=== PATIENT | female | born 1955 | race Caucasian/White ===

== ENCOUNTER 2022-12-04 11:40 | Emergency (ER) | payer MEDICARE, SELFPAY ==
[2022-12-04 11:47] VITALS: BP 130/65; PULSE 74; RESP 16; TEMP 36.8; O2SAT 97
--- NOTE | 2022-12-04 11:55 | W.ED.GENAD ---
Discharge Plan Disposition Patient Disposition: Home Condition: Improving Discharge Details Clinical Impression: Contusion of knee, Contusion of face, Abrasion of knee, right Primary Care Provider: Dwayne Carbone ED Provider: Elliot Stone Meds and New Rx's Prescriptions: Continued metformin 1,000 mg tablet 1,000 mg PO BID amlodipine 10 mg tablet 10 mg PO DAILY hydrochlorothiazide 50 mg tablet 50 mg PO DAILY levothyroxine [Levo-T] 100 mcg tablet 100 mcg PO DAILY simvastatin 40 mg tablet 40 mg PO QHS Discharge Instructions Instructions: Contusion in Adults (ED), Swollen Knee Joint (ED) Discharge Data Discharge Physician: Elliot Stone Medical Decision Making MDM: Summary: Patient fell sustaining trauma to her left infraorbital area left patella right hand and left lower leg. X-rays were done of the hand and the knee and a CT scan of the head and facial bones were done which were negative. Patient denies any pain denies any diplopia and will be sent home. Patient received a tetanus shot in the emergency department for she does not recall the last time she had 1 done and the wounds were cleaned and dressed. Data Review Analysis All the data on this patient was reviewed by me including laboratory and imaging studies as well as bedside studies performed by me Independent review of Studies Imaging As above Lab: Risk Stratification: Patient who sustained mild trauma to her face and lower extremities with no fractures will be discharged home Differential Diagnosis: 1. Face contusion 2. Knee contusion and knee abrasion 3. Facial fracture 4. Skull fracture with intracranial bleed 5. Orbital fracture Consultants: Shared disposition: Patient states she feels fine and agrees to be on the tetanus shot and will go home. Impression: Imaging Data Radiologic Study: Imaging: X-Ray Radiologist's impression: Close Knee X-Ray (Signed) BaumannCarlito - 12/04/22 Launch?Image Patient Name: Rody Agosto Unit #: [id number] Loc: ER Ordering Provider: Elliot Stone M.D. Status: [facility] Primary Care Provider: Dwayne Carbone Date of Exam: 12/04/22 Sex: F Admission Date: 12/04/22 : 1955 Age: 67 Exam(s) XR KNEE LT 4V AP,LAT,AUSTYN,PAT EXAM: XR KNEE LT 4V AP,LAT,AUSTYN,PAT CLINICAL HISTORY: fall and knee and patella pain. TECHNIQUE: 2D digital imaging was performed of the left knee. Four images were obtained. Merchant,AP, lateral and PA tunnel views were obtained. COMPARISON: No exams were available for comparison FINDINGS: BONES: No acute fracture is present. No bony destructive lesion is seen. JOINTS: Mild degenerative changes are present. No joint effusion is seen. No loose body. SOFT TISSUE: Normal. IMPRESSION: No acute fracture or dislocation. DATA REPOSITORY: RADIATION DOSE DELIVERED: Ordered By: Elliot Stone M.D. CC: Dictated By: Carlito Baumann M.D. 12/04/221331 <Electronically signed by Carlito Baumann M.D. in [place]> 12/04/221331 Transcribed By: Pastor CASTAÑEDA General Date/Time Provider Initiated Documentation: 12/04/22 11:55. HPI Narrative: Patient presents emergency department after she was helping clean a house and she tripped fell sustaining trauma to her face her left knee and left lower leg on the pavement. Denies loss of consciousness but reports tenderness to the left side of orbital area and has an abrasion on her knee and her left barcenas. Related Data Home Medications Medication Instructions Recorded Confirmed amlodipine 10 mg tablet 10 mg PO DAILY 12/04/22 12/04/22 hydrochlorothiazide 50 mg tablet 50 mg PO DAILY 12/04/22 12/04/22 levothyroxine 100 mcg tablet 100 mcg PO DAILY 12/04/22 12/04/22 (Levo-T) metformin 1,000 mg tablet 1,000 mg PO BID 12/04/22 12/04/22 simvastatin 40 mg tablet 40 mg PO QHS 12/04/22 12/04/22 Allergies Allergy/AdvReac Type Severity Reaction Status Date / Time No Known Drug Allergies Allergy Verified 12/04/22 12:06 General Stated Complaint: Fall/Non TraumaCriteria VONNIE: 4 Review of Systems Narrative: Review of Systems: Constitutional: No fevers, chills, sweats Eye: No recent visual problems ENT: No ear pain, nasal congestion, sore throat Respiratory: No shortness of breath, cough Cardiovascular: No Chest pain, palpitations, syncope Gastrointestinal: No nausea, vomiting, diarrhea Genitourinary: No hematuria Devyn/Lymph: Negative for bruising tendency, swollen lymph glands Endocrine: Negative for excessive thirst, excessive hunger Musculoskeletal: No back pain, neck pain, joint pain, muscle pain, decreased range of motion Integumentary: No rash, pruritus, abrasions Neurologic: Alert & oriented X 4 Psychiatric: No anxiety, depression PFSH All Active Problems (Updated 12/04/22 @ 14:23 by Elliot Stone MD) Abrasion of knee, right (Acute) Contusion of face (Acute) Contusion of knee (Acute) Social History Smoking/Tobacco Use Status: Never Smoking risk assessment performed?: Yes Substance use type: does not use Housing: house Do you feel safe at home: Yes Do you feel safe in your relationship?: Yes Exam Narrative Exam Narrative: Exam; vitals signs as reported above normal Constitutional; In no acute distress, afebrile General: cooperative, healthy appearing, comfortable and no acute distress HEENT: Head: normal to inspection, tenderness palpation to the left infraorbital and maxillary area of the face Eyes: : appearance normal, both eyes and all related structures EOM intact bilaterally Pupils: PERRL : conjunctiva normal Direct ophthalmoscopy: normal light reflex, normal conjunctiva, normal visual acuity Ears: Normal TM, normal external canal Nose: normal no rhinorreha Neck no JVD, supple non tender Neck: normal visual inspection, full ROM and no lymphadenopathy Chest: normal inspection of the chest Respiratory : normal respiratory effort and able to speak in complete sentences no wheezing no rales Cardio Rate: regular rate, rhythm: regular rhythm normal heart sounds S1 and S2 no murmurs, gallops, or rubs GI : normal to inspection, normal bowel sounds, soft, non tender, non distended, no organomegaly Back/Spine/ no CVA tenderness Thoracic/Lumbar Spine: no tenderness or deformities Skin no rashes or lesions abrasion about 5 x 5 cm on the left mid lower leg and abrasion over the patella on the left lower leg Neuro: patient alert oriented x 4 and no meningeal signs, Cranial Nerves: CN's II-XI intact bilaterally, Cognition: normal cognition, Speech: speech normal, Gait: normal gait, Depp tendon reflexes normal 2+ muscle strength 5/5 bilaterally Extremities, no edema, full range of motion, normal strength : normal Rectal: Course Vital Signs Vital signs: Vital Signs Temperature 36.8 C 12/04/22 11:47 Pulse 74 12/04/22 11:47 Respiratory Rate 16 12/04/22 11:47 Blood Pressure 130/65 12/04/22 11:47 Pulse Oximetry 97 12/04/22 11:47 Temperature 36.8 C 12/04/22 11:47 Temperature Source Skin 12/04/22 11:47 Pulse 74 12/04/22 11:47 Respiratory Rate 16 12/04/22 11:47 Blood Pressure 130/65 12/04/22 11:47 Blood Pressure Position Sitting 12/04/22 11:47 Pulse Oximetry 97 12/04/22 11:47 Oxygen Delivery Method Room Air 12/04/22 11:47 Oxygen Flow Rate 0 12/04/22 11:47 Pain Level 5 12/04/22 11:47
--- NOTE | 2022-12-04 12:00 | DI.CT_ITS ---
Exam(s) CT HEAD FACIAL WO EXAM: CT HEAD FACIAL WO CLINICAL HISTORY: trauma to left face. TECHNIQUE: Imaging Protocol: Axial computed tomography images with coronal and sagittal reformatted images were created and reviewed COMPARISON: No exams were available for comparison FINDINGS: CT Head: Ventricles and Extra axial spaces: Normal in size and morphology for the patient's age. Hemorrhage: None. Cerebral parenchyma: Normal. Midline shift: None. Brainstem/Cerebellum: Normal. Calvarium: Normal. Visualized Paranasal sinuses/Mastoids: There is mild mucosal thickening in the visualized paranasal s inuses with sparing of the sphenoid sinuses. No air-fluid levels are seen. The mastoid air cells ar e clear. Soft Tissues: Unremarkable. CT Face: Facial Bones: There is disruption of the lateral aspect of the floor of the left orbit suspicious fo r fracture. There is no overlying soft tissue swelling. No evidence of nerve entrapment or retro-or bital air. Sinuses and Mastoids: There is mild mucosal thickening of the visualized paranasal sinuses with spar ing of the sphenoid sinuses. No air-fluid levels are seen. The mastoid air cells are clear. Nasal septum deviates to the left. Globes, extraocular muscles, optic nerves and retrobulbar fat: Normal. Upper aerodigestive tract: Normal. Mandible and bilateral temporomandibular joints: There are degenerative changes seen at the temporom andibular joints bilaterally. Soft tissues: Normal. IMPRESSION: 1. No acute intracranial process. 2. Deformity of the lateral aspect of the floor of the left orbit. This may be chronic. No retro-or bital air or subcutaneous swelling is seen. There is no fluid level in the left maxillary sinus. An acute fracture cannot be entirely excluded however. Please correlate clinically. 3. Findings were discussed with Dr. Stone at 1:29 p.m. on 12/04/2022. RADIATION DOSE DELIVERED: Total DLP DATA REPOSITORY: All CT scans at this facility are submitted to the National Radiology Data Registry (NRDR) Dose Index Registry (DIR) with the [employer] ([employer]). RADIATION OPTIMIZATION: All CT scans at this facility use at least one of these dose optimization te chniques: automated exposure control; mA and/or kV adjustment per patient size (includes targeted exa ms where dose is matched to clinical indication); or iterative reconstruction.
--- NOTE | 2022-12-04 13:27 | DI.RAD_ITS ---
Exam(s) XR KNEE LT 4V AP,LAT,AUSTYN,PAT EXAM: XR KNEE LT 4V AP,LAT,AUSTYN,PAT CLINICAL HISTORY: fall and knee and patella pain. TECHNIQUE: 2D digital imaging was performed of the left knee. Four images were obtained. Merchant, AP, lateral and PA tunnel views were obtained. COMPARISON: No exams were available for comparison FINDINGS: BONES: No acute fracture is present. No bony destructive lesion is seen. JOINTS: Mild degenerative changes are present. No joint effusion is seen. No loose body. SOFT TISSUE: Normal. IMPRESSION: No acute fracture or dislocation. DATA REPOSITORY: RADIATION DOSE DELIVERED:
--- NOTE | 2022-12-04 13:27 | DI.RAD_ITS ---
Exam(s) XR HAND RT COMPLETE EXAM: XR HAND RT COMPLETE CLINICAL HISTORY: fell and hand pain. TECHNIQUE: 2D digital imaging was performed of the right hand. Three images were obtained. AP, late ral and oblique views were obtained. COMPARISON: No exams were available for comparison FINDINGS: BONES: No acute fracture is present. No bony destructive lesion is seen. JOINTS: No dislocation present. SOFT TISSUE: Normal. IMPRESSION: No acute fracture or dislocation. DATA REPOSITORY: RADIATION DOSE DELIVERED:
[2022-12-04] MEDS: Tetanus & Diphtheria Tox,ADULT 0.5 ML VIAL IM (14:32)
--- NOTE | 2022-12-04 15:02 | NUR.NOTE ---
Nursing Note: Dressings applied to pt's RT leg abrasions per ED provider order. Abrasions x2 cleansed w/ 0.9% saline; Bacitracin applied to both abrasions. Abrasions covered w/ Telfa gauze and reinforced w/ gauze wrap.
== END 2022-12-04 14:10 | disposition home or self-care (01) ==
PROVIDERS: Emergency Provider Emergency Medicine Emergency Medical Services
DX: S80.02XA Contusion of left knee, initial encounter; S60.221A Contusion of right hand, initial encounter; S00.12XA Contusion of left eyelid and periocular area, initial encounter; W01.0XXA Fall on same level from slipping, tripping and stumbling without subsequent striking against object, initial encounter; Y93.E9 Activity, other interior property and clothing maintenance
CPT/HCPCS: 90471; 99285; 70450; 70486; 73130; 73564; 99284